=== PATIENT | female | born 1940 | race Caucasian/White ===

== ENCOUNTER 2017-11-02 23:25 | Emergency (ER) | payer MEDICARE, BC ==
[2017-11-02] MEDS ORDERED: Nitroglycerin 0.4 MG TAB (25 Tab Bottle) ONE (23:44)
[2017-11-02] MEDS ORDERED: Metoprolol Tartrate 5 MG/5 ML VIAL ONE (23:46)
[2017-11-02] MEDS ORDERED: Ondansetron HCl/PF 4 MG/2 ML Vial ONE (23:46)
[2017-11-03 00:04] LABS: Hemoglobin 12.7 g/dL (12.0-16.0); Mean Corpuscular Hemoglobin 31.6 pg (27.0-31.0); Mean Corpuscular Volume 93.9 fL (81.0-99.0); Red Blood Cell (RBC) Count 4.02 mill/uL (4.20-5.40); White Blood Cell (WBC) Count 8.7 thou/uL (4.8-10.8)
[2017-11-03 00:05] LABS: #Basophils 0.2 thou/uL (0.0-0.2); #Eosinphils 0.6 thou/uL (0.0-0.7); #Lymphocytes 1.5 thou/uL (1.20-3.40); #Monocytes 0.9 thou/uL (0.11-0.59); #Neutrophils 5.5 thou/uL (1.40-6.50); %Basophils 2.1 % (0.0-1.0); %Eosinophils 6.5 % (0.0-10.0); %Lymphocytes 17.4 % (21.0-51.0); %Monocytes 10.1 % (0.0-10.0); %Neutrophils 63.9 % (42.0-75.0); Mean Corpuscular HGB CONC 33.6 g/dL (32.0-36.0); Mean Platelet Volume 7.1 fL (7.4-10.4); Platelet Count 315 thou/uL (130-400); RBC Distribution Width 12.7 % (11.5-14.5)
[2017-11-03 00:14] LABS: ALT (SGPT) 12 U/L (8-55); AST (SGOT) 20 U/L (5-34); Albumin 3.6 g/dL (3.4-4.8); Alkaline Phosphatase 57 U/L (40-150); Anion Gap 19 mmol/L (10-20); BUN (Urea Nitrogen) 17 mg/dL (9.8-20.1); Bilirubin, Total 0.6 mg/dL (0.2-1.2); Calc. Creatinine Clearance 0 mL/min (70-130); Calcium 9.5 mg/dL (7.8-10.44); Carbon Dioxide 19 mmol/L (23-31); Chloride 104 mmol/L (98-107); Estimated GFR-MDRD 56; Globulin 3.3 g/dL (2.4-3.5); Glucose 123 mg/dL (83-110); Lipase 13 U/L (8-78); Potassium 3.8 mmol/L (3.5-5.1); Protein, Total 6.9 g/dL (6.0-8.3); Sodium 138 mmol/L (136-145)
[2017-11-03 00:16] LABS: CKMB 1.6 ng/mL (0-6.6); Troponin I Less than 0.010 ng/mL (< 0.028)
--- NOTE | 2017-11-03 07:10 | RAD ---
PORTABLE CHEST: Date: 11/02/17 An AP portable film at 2322 hours shows a normal sized heart. There is no vascular congestion or mariela a. No lobar consolidations seen. A little prominence of markings in the right base medially is probab ly more due to the patient being turned to the side slightly than a real infiltrate. IMPRESSION: No acute thoracic findings. POS: HOME
== END 2017-11-03 00:55 | disposition short-term general hospital (02) ==
LOC: BURERS 23:25
DX: I20.0 Unstable angina (principal); M06.9 Rheumatoid arthritis, unspecified; I38 Endocarditis, valve unspecified; Z79.899 Other long term (current) drug therapy; Z79.1 Long term (current) use of non-steroidal anti-inflammatories (NSAID)
CPT/HCPCS: 71045; 80053; 82553; 83690; 84484; 85025; 93005; 94760; 96361; 96374; 96375; J2405

== ENCOUNTER 2018-03-16 08:35 | Outpatient (CLI) | payer MEDICARE, BC ==
--- NOTE | 2018-03-16 20:24 | ULT ---
GALLBLADDER ULTRASOUND: 03/16/18 Ultrasonography of the right upper quadrant shows the liver to measures 15.5 cm in oblique sagittal l ength. No focal hepatic lesions or dilated ducts were seen. The gallbladder contained no signs of sto juan or wall thickening. The common bile duct was a normal 4 mm in caliber. The right kidney was 9.7 c m long and appeared normal. Hepatic portal venous flow was towards the liver as expected. The aorta w as not imaged. The pancreas appeared normal. IMPRESSION: At most, hepatic size may be upper normal. Exam otherwise unremarkable. POS: HOME
== END 2018-03-16 08:36 | disposition home or self-care (01) ==
LOC: BURULT 08:35
PROVIDERS: ATTEND Family Medicine
DX: R10.11 Right upper quadrant pain (principal)
CPT/HCPCS: 76705

== ENCOUNTER 2022-08-27 09:35 | Emergency (ER) | payer MEDICARE, BC | END 2022-08-27 10:45 | disposition home or self-care (01) | LOC: BURERS 09:35 | DX: S92.421A Displaced fracture of distal phalanx of right great toe, initial encounter for closed fracture (principal); I10 Essential (primary) hypertension; W18.40XA Slipping, tripping and stumbling without falling, unspecified, initial encounter ==

== ENCOUNTER 2022-10-02 08:48 | Outpatient (CLI) | payer MEDICARE, BC ==
[2022-10-02] MEDS ORDERED: Iopamidol 370 76% 100 ML VIAL ONE (11:36)
== END 2022-10-02 08:49 | disposition home or self-care (01) ==
LOC: BURCT 08:48
PROVIDERS: ATTEND Family Medicine
DX: R19.04 Left lower quadrant abdominal swelling, mass and lump (principal); R10.32 Left lower quadrant pain
CPT/HCPCS: 74177; Q9967

== ENCOUNTER 2024-02-01 12:11 | Emergency (ER) | payer MEDICARE, BC ==
[2024-02-01 12:33] LABS: Bilirubin Negative (Negative); Blood, Urine Negative (Negative); Clarity Clear (Clear); Glucose, Urine (Dipstick) Negative (Negative); Ketone, Urine Negative (Negative); Leukocyte Trace (Negative); Nitrite Negative (Negative); Protein, Urine (Dipstick) Negative (Neg-Trace); Specific Gravity, Urine 1.025 (1.005-1.030); Urobilinogen 0.2 mg/dL (Less than 2); pH, Urine 5.5 (5.0-9.0)
[2024-02-01] MEDS ORDERED: Acetaminophen 500 MG TAB ONE (12:34)
[2024-02-01 12:44] LABS: Bacteria/HPF 1+ HPF (None Seen); CAUTI Indications for Culture Dysuria,urgency,freq; RBC/HPF None Seen HPF (0-3); Urine Culture Reflex No No; WBC/HPF 0-3 HPF (0-3)
[2024-02-01 12:46] LABS: #Basophils 0.1 thou/uL (0.0-0.2); #Eosinphils 1.1 thou/uL (0.0-0.7); #Lymphocytes 2.2 thou/uL (1.20-3.40); #Monocytes 0.6 thou/uL (0.11-0.59); #Neutrophils 2.2 thou/uL (1.40-6.50); %Basophils 2.4 % (0.0-1.0); %Eosinophils 17.3 % (0.0-10.0); %Lymphocytes 35.5 % (21.0-51.0); %Monocytes 9.7 % (0.0-10.0); %Neutrophils 35.1 % (42.0-75.0); Hemoglobin 13.2 g/dL (12.0-16.0); Mean Corpuscular HGB CONC 33.1 g/dL (32.0-36.0); Mean Corpuscular Hemoglobin 31.9 pg (27.0-31.0); Mean Corpuscular Volume 96.4 fl (78.0-98.0); Mean Platelet Volume 7.1 fL (7.4-10.4); Platelet Count 190 10x3/uL (130-400); RBC Distribution Width 12.4 % (11.5-14.5); Red Blood Cell (RBC) Count 4.15 mill/uL (4.20-5.40); White Blood Cell (WBC) Count 6.3 10x3/uL (4.8-10.8)
[2024-02-01 12:56] LABS: Anion Gap 13 mmol/L (10-20); BUN (Urea Nitrogen) 13 mg/dL (9.8-20.1); Calc. Creatinine Clearance 0 mL/min (70-130); Carbon Dioxide 22 mmol/L (23-31); Chloride 105 mmol/L (98-107); Estimated GFR 70; Glucose 111 mg/dL (83-110); Potassium 4.3 mmol/L (3.5-5.1); Sodium 136 mmol/L (136-145)
== END 2024-02-01 13:22 | disposition home or self-care (01) ==
LOC: BURERS 12:11
DX: I10 Essential (primary) hypertension (principal); E11.9 Type 2 diabetes mellitus without complications; I48.91 Unspecified atrial fibrillation
CPT/HCPCS: 36415; 80048; 81001; 85025; 93005

== ENCOUNTER 2024-04-12 14:16 | Outpatient (CLI) | payer MEDICARE, BC | END 2024-04-12 14:17 | disposition home or self-care (01) | LOC: BURRAD 14:16 | PROVIDERS: ATTEND Internal Medicine Rheumatology | DX: M05.79 Rheumatoid arthritis with rheumatoid factor of multiple sites without organ or systems involvement (principal); R76.12 Nonspecific reaction to cell mediated immunity measurement of gamma interferon antigen response without active tuberculosis; Z79.899 Other long term (current) drug therapy; J94.8 Other specified pleural conditions | CPT/HCPCS: 71046 ==